=== PATIENT | male | born 1985 | race Caucasian/White ===

== ENCOUNTER 2017-02-10 19:28 | Emergency (ER) | payer BC, OTHER ==
[2017-02-10 19:48] VITALS: BP 124/75; PULSE 68; RESP 18; TEMP 98
--- NOTE | 2017-02-10 20:48 | ED ---
General Adult HPI <Cristian Gee - Last Filed: 02/10/17 21:14> - General Source: patient, RN notes reviewed Mode of arrival: ambulatory Limitations: no limitations <Brando Mathews - Last Filed: 02/10/17 21:24> - General Chief complaint: Extremity Injury, Upper Stated complaint: L shoulder injury Time Seen by Provider: 02/10/17 20:17 - History of Present Illness Initial comments: Patient 31-year-old male who presents emergency room today with chief complaint of an injury to the left shoulder. He does admit that he was at work yesterday picking up a part when he got caught on a pen and pulled his left arm out laterally. He states he felt increased pain to the anterior aspect of left shoulder and began having some numbness sensation down into the arm shortly thereafter. He states proximal less than an hour later he felt like his whole arm was numb. He states it's felt like his arms felt numb the whole day. He states he was at work again tonight and is having a difficult time working because of this feeling. States he does have pain to the anterior aspect left shoulder. He denies any other complaints or symptoms. He denies any neck pain. Patient denies any recent fever, chills, shortness of breath, chest pain, back pain, abdominal pain, nausea or vomiting, dysuria or hematuria, constipation or diarrhea, headaches or visual changes, or any other complaints. (Brando Mathews) - Related Data Previous Rx's Medication Instructions Recorded Ibuprofen [Motrin] 600 mg PO Q6HR PRN #20 day 02/10/17 Allergies Allergy/AdvReac Type Severity Reaction Status Date / Time Penicillins Allergy Unknown Verified 02/10/17 19:47 Review of Systems ROS Other: All systems not noted in ROS Statement are negative. <Cristian Gee - Last Filed: 02/10/17 21:14> ROS Other: All systems not noted in ROS Statement are negative. <Brando Mathews - Last Filed: 02/10/17 21:24> ROS Statement: Those systems with pertinent positive or pertinent negative responses have been documented in the HPI. Past Medical History Past Medical History: Hypertension Additional Past Medical History / Comment(s): knee pain History of Any Multi-Drug Resistant Organisms: None Reported Past Surgical History: Orthopedic Surgery Additional Past Surgical History / Comment(s): right knee surgery twice Past Anesthesia/Blood Transfusion Reactions: No Reported Reaction Past Psychological History: Anxiety Smoking Status: Current every day smoker Past Alcohol Use History: Occasional Past Drug Use History: Marijuana <Brando Mathews - Last Filed: 02/10/17 21:24> General Exam <Cristian Gee - Last Filed: 02/10/17 21:14> Limitations: no limitations <Brando Mathews - Last Filed: 02/10/17 21:24> - General Exam Comments Initial Comments: General: The patient is awake and alert, in no distress, and does not appear acutely ill. Neck: The neck is supple, there is no tenderness or JVD. Cardiovascular: There is a regular rate and rhythm. No murmur, rub or gallop is appreciated. Respiratory: Lungs are clear to auscultation, respirations are non-labored, breath sounds are equal. No wheezes, stridor, rales, or rhonchi. Musculoskeletal: normal appearance of left shoulder obvious deformity. Shows full range motional directions. Normal appearance of cervical, thoracic, lumbar spine. No step-offs forms appreciated. No tenderness over the midline of the spinous processes. Patient has tenderness over the eyes the roof of the anterior aspect of left shoulder along with mild tenderness to the posterior aspect left shoulder. No other bony tenderness on exam. Patient does have decreased sensation to light touch. Decreased sensation to sharp needlepoint. Pulses equal bilaterally 2+. Ram Press Operator strength slightly decreased when compared bilaterally. Strength to the left shoulder and left forearm 5/5. Neurological: A&O x 3. CN II-XII intact, There are no obvious motor or sensory deficits. Coordination appears grossly intact. Speech is normal. Skin: Skin is warm and dry and no rashes or lesions are noted. Psychiatric: Normal mood and affect. (Brando Mathews) Medical Decision Making <Cristian Gee - Last Filed: 02/10/17 21:14> <Brando Mathews - Last Filed: 02/10/17 21:24> - Medical Decision Making Patient reevaluated by myself, Dr. Gee. X-rays reviewed. Patient has some discomfort left anterior shoulder. Patiently may have minimal decreased strength with rim buster. Patient states he had decreased ability to detect sharp sensation. Patient is able to detect pressure without difficulty. No neck pain. No back pain. No tenderness on exam. Case was discussed with Dr. Isidro who agrees symptoms are likely musculoskeletal and will follow up with patient tomorrow. Patient advised not to use his left arm. (Cristian Gee) x-ray negative for any acute abnormality. Results were discussed with the patient. Case discussed with attending physician Dr. Gee who did discuss case with on-call orthopedics Dr. Isidro who states findings are consistent with muscular skeletal him a follow-up in the office tomorrow. Patient's been updated will be discharged home. (Brando Mathews) Disposition <Cristian Gee - Last Filed: 02/10/17 21:14> Time of Disposition: 21:04 <Brando Mathews - Last Filed: 02/10/17 21:24> Clinical Impression: Injury of left shoulder Disposition: HOME SELF-CARE Instructions: Shoulder Pain (ED) Additional Instructions: Please follow-up orthopedics tomorrow as discussed. Please use medication as prescribed and return for any other concerns. Prescriptions: Ibuprofen [Motrin] 600 mg PO Q6HR PRN #20 day PRN Reason: Pain Referrals: None,Stated [Primary Care Provider] - 1-2 days Bola Isidro MD [Medical Doctor] - 1-2 days
--- NOTE | 2017-02-10 20:50 | XR ---
EXAMINATION TYPE: XR shoulder complete LT DATE OF EXAM: 02/10/2017 8:43 PM COMPARISON: NONE HISTORY: Lifting injury TECHNIQUE: 3 views FINDINGS: I see no fracture nor dislocation. Joint spaces are normal. There are no pathologic calcifi cations. IMPRESSION: Negative left shoulder exam.
[2017-02-10] MEDS ORDERED: IBUPROFEN 600 MG STARTER PACK 4 TAB BTL PO STA (21:14)
== END 2017-02-10 21:25 | disposition home or self-care (01) ==
LOC: EC 19:28
DX: S49.92XA Unspecified injury of left shoulder and upper arm, initial encounter (principal); F17.200 Nicotine dependence, unspecified, uncomplicated; Z88.0 Allergy status to penicillin; W31.89XA Contact with other specified machinery, initial encounter; Y93.89 Activity, other specified; Y92.69 Other specified industrial and construction area as the place of occurrence of the external cause
CPT/HCPCS: 99283

== ENCOUNTER 2017-03-30 02:12 | Observation (INO) | payer BC, OTHER ==
[2017-03-30] MEDS ORDERED: MAG HYDROX/AL HYDROX/SIMETH 30 ML, HYOSCYAMINE ELIXIR 10 ML, CIMETIDINE HCL 300 MG PO STA ×3 (02:30)
--- NOTE | 2017-03-30 02:33 | ED ---
Chest Pain HPI - General Source: patient Mode of arrival: ambulatory Limitations: no limitations <Davonte Hollingsworth - Last Filed: 03/30/17 03:44> <Cristian Gee - Last Filed: 03/30/17 04:46> - General Chief Complaint: Chest Pain Stated Complaint: Chest pain Time Seen by Provider: 03/30/17 02:20 - History of Present Illness Initial Comments: 31-year-old male presents emergency Department chief complaint chest pain. Patient states this started 90 minutes prior arrival. Patient states that it's in his left lower chest region. Patient states that it's nonradiating sharp stabbing type pain. Patient has a history of hypertension and a family history of heart disease. Patient states he does not know about any cholesterol issues and denies diabetes. Patient is a daily smoker. Patient states that he has been told that he has had gastric ulcer in the past was on Prilosec for 2 years. Patient didn't admit to eating fast food today. Patient states he has no abdominal pain. Denies any nausea vomiting diarrhea constipation. Denies any shortness of breath but states he does feel very rundown and weak today. ( Davonte Hollingsworth) - Related Data Home Medications Medication Instructions Recorded Confirmed Acetaminophen Tab [Tylenol Tab] 1,000 mg PO Q6HR PRN 03/30/17 03/30/17 Vitamin B Complex 1 each PO DAILY 03/30/17 03/30/17 Allergies Allergy/AdvReac Type Severity Reaction Status Date / Time Penicillins Allergy Unknown Verified 03/30/17 02:17 Review of Systems ROS Other: All systems not noted in ROS Statement are negative. <Davonte Hollingsworth - Last Filed: 03/30/17 03:44> ROS Other: All systems not noted in ROS Statement are negative. <Cristian Gee - Last Filed: 03/30/17 04:46> ROS Statement: Those systems with pertinent positive or pertinent negative responses have been documented in the HPI. EKG Findings - EKG Comments: EKG Findings:: EKG performed at 2:23 6 sinus bradycardia with a rate of 53 RI interval 142 QRS duration 92 QT/QTC 364/341 <Davonte Hollingsworth - Last Filed: 03/30/17 03:44> Past Medical History Past Medical History: GERD/Reflux, Hypertension Additional Past Medical History / Comment(s): knee pain; Gastric Ulcer History of Any Multi-Drug Resistant Organisms: None Reported Past Surgical History: Orthopedic Surgery Additional Past Surgical History / Comment(s): right knee surgery twice Past Anesthesia/Blood Transfusion Reactions: No Reported Reaction Past Psychological History: Anxiety Smoking Status: Current every day smoker Past Alcohol Use History: Occasional Past Drug Use History: None Reported <Davonte Hollingsworth - Last Filed: 03/30/17 03:44> General Exam Limitations: no limitations General appearance: alert, in no apparent distress Respiratory exam: Present: normal lung sounds bilaterally. Absent: respiratory distress, wheezes, rales, rhonchi, stridor, chest wall tenderness Cardiovascular Exam: Present: regular rate, normal rhythm, normal heart sounds. Absent: systolic murmur, diastolic murmur, rubs, gallop, clicks GI/Abdominal exam: Present: soft, tenderness (mild epigastric), normal bowel sounds. Absent: distended, guarding, rebound, rigid Back exam: Absent: CVA tenderness (R), CVA tenderness (L) Skin exam: Present: warm, dry, intact, normal color. Absent: rash <Davonte Hollingsworth - Last Filed: 03/30/17 03:44> Chest Pain MDM <Davonte Hollingsworth - Last Filed: 03/30/17 03:44> <Cristian Gee - Last Filed: 03/30/17 04:46> - MDM Case was discussed with practitioner customer care team coach, who will admit for Dr. Yates, covering for hospital call. (Cristian Gee) Disposition <Davonte Hollingsworth - Last Filed: 03/30/17 03:44> <Cristian Gee - Last Filed: 03/30/17 04:46> Clinical Impression: Chest pain Disposition: ADMITTED IP TO THIS HOSP Condition: Stable
[2017-03-30 02:50] LABS: Basophils # (A) 0.1 k/uL (0-0.2); Basophils % (A) 1 %; CH 31.2; CHCM 34.8; Eosinophils # (A) 0.2 k/uL (0-0.7); Eosinophils % (A) 3 %; HCT 43.7 % (39.0-53.0); HDW 2.41; HGB 14.7 gm/dL (13.0-17.5); Luc # (Auto) 0.18; Luc % (Auto) 3; Lymphocytes # (A) 2.7 k/uL (1.0-4.8); Lymphocytes % (A) 37 %; MCH 30.3 pg (25.0-35.0); MCHC 33.7 g/dL (31.0-37.0); Mean Platelet Volume 8.1; Monocytes # (A) 0.3 k/uL (0-1.0); Monocytes % (A) 4 %; Neutrophils # (A) 3.7 k/uL (1.3-7.7); Neutrophils % (A) 52 %; RBC 4.86 m/uL (4.30-5.90); RDW 12.8 % (11.5-15.5); WBC 7.2 k/uL (3.8-10.6); WBC (Perox) 6.75
[2017-03-30 03:00] LABS: ALT 33 U/L (21-72); AST 18 U/L (17-59); Alkaline Phosphatase 57 U/L (38-126); Anion Gap 10 mmol/L; Blood Urea Nitrogen 17 mg/dL (9-20); Calcium 9.4 mg/dL (8.4-10.2); Carbon Dioxide 26 mmol/L (22-30); Chloride 106 mmol/L (98-107); Glucose 115 mg/dL (74-99); Magnesium 2.1 mg/dL (1.6-2.3); Non-African American GFR(MDRD) >60 (>60 ml/min/1.73 sqM); Potassium 4.2 mmol/L (3.5-5.1); Sodium 142 mmol/L (137-145); Total Bilirubin 0.3 mg/dL (0.2-1.3); Total Protein 6.2 g/dL (6.3-8.2)
[2017-03-30 03:07] LABS: INR 1.1 (<1.1); Partial Thromboplastin Time 25.8 sec (22.0-30.0)
[2017-03-30 03:11] LABS: Creatine Kinase 56 U/L (55-170)
[2017-03-30 03:24] LABS: Creatine Kinase MB 1.3 ng/mL (0.0-2.4); Troponin I <0.012 ng/mL (0.000-0.034)
--- NOTE | 2017-03-30 03:38 | XR ---
EXAM: XR Chest, 2 Views CLINICAL HISTORY: Chest Pain TECHNIQUE: Frontal and lateral views of the chest. COMPARISON: No relevant prior studies available. FINDINGS: Lungs: Unremarkable. No consolidation. Pleural space: Unremarkable. No pneumothorax. Heart: Unremarkable. No cardiomegaly. Mediastinum: Unremarkable. Bones/joints: Unremarkable. IMPRESSION: Normal chest x-rays.
[2017-03-30] MEDS ORDERED: HEPARIN SODIUM,PORCINE 5,000 UNIT/ML 1 ML VIAL IV ONE (03:45)
[2017-03-30] MEDS ORDERED: HEPARIN SODIUM,PORCINE/D5W PMX 25,000 UNIT in DEXTROSE/WATER 1 500ML.BAG IV SCH (03:45)
[2017-03-30] MEDS ORDERED: NITROGLYCERIN SL TABS 0.4 MG TAB SUBLINGUAL PRN (03:45)
[2017-03-30 04:54] VITALS: BMI 25.0
[2017-03-30 05:02] VITALS: RESP 18
[2017-03-30] MEDS ORDERED: ASPIRIN 325 MG TAB PO SCH (09:00)
[2017-03-30 09:15] LABS: Creatine Kinase 41 U/L (55-170)
[2017-03-30 09:28] LABS: Creatine Kinase MB 0.9 ng/mL (0.0-2.4); Troponin I <0.012 ng/mL (0.000-0.034)
[2017-03-30 12:19] VITALS: BP 147/90; PULSE 62; TEMP 98
--- NOTE | 2017-03-30 13:56 | PCN ---
DATE OF SERVICE: 03/30/2017 STRESS ECHOCARDIOGRAM INDICATION: Chest pain. BASELINE HEART RATE: 48 BASELINE BLOOD PRESSURE: 136/85 MAXIMUM HEART RATE: 160 MAXIMUM BLOOD PRESSURE: 173/58 85% MPHR: 159 100% MPHR: 187 METS: 13.0 MAXIMUM STAGE REACHED: 4 TOTAL EXERCISE TIME: 12:00 Baseline EKG shows sinus rhythm, normal axis, normal intervals. Patient exercise on Kody protocol for a total of 12 minutes, achieving 13 METS, 86% of predicted maximum heart rate without chest pain or diagnostic ST-segment depression. Baseline echo shows normal left ventricular size, wall motion and systolic function. Post-exercise, there is normal hyperdynamic response of all segments of myocardium noted. CONCLUSION: 1. Excellent exercise tolerance. 2. Negative stress test by EKG criteria. 3. Negative stress echo. [facility]
--- NOTE | 2017-03-30 18:34 | P.HPIM ---
History of Present Illness H&P Date: 03/30/17 (dc summary) 31-year-old gentleman with history of hypertension who has been noncompliant with his medications comes in to the hospital with complains of chest pressure nonradiating patient's symptoms were noted during his work. Patient's work set automobile parts factory Denies having previous episodes of chest pains. Patient notes that he's had some facial flushing and some headaches during the symptoms patient was not able to measure his blood pressure however in the emergency room patient's blood pressure was noted to be 160 systolic Patient did note resolution of symptoms upon receiving nitroglycerin EKG did not reveal ST-T wave changes Patient underwent a stress test which did not reveal any reproducible ischemia Patient has family history of cardiac disease and ongoing tobacco use Review of Systems All systems: negative (Noted in HPI) Past Medical History Past Medical History: GERD/Reflux, Hypertension Additional Past Medical History / Comment(s): knee pain; Gastric Ulcer History of Any Multi-Drug Resistant Organisms: None Reported Past Surgical History: Orthopedic Surgery Additional Past Surgical History / Comment(s): right knee surgery twice Past Anesthesia/Blood Transfusion Reactions: No Reported Reaction Past Psychological History: Anxiety Smoking Status: Current every day smoker Past Alcohol Use History: Occasional Past Drug Use History: None Reported Medications and Allergies Home Medications Medication Instructions Recorded Confirmed Type Acetaminophen Tab [Tylenol] 1,000 mg PO Q6HR PRN 03/30/17 03/30/17 History Vitamin B Complex 1 cap PO DAILY 03/30/17 03/30/17 History Allergies Allergy/AdvReac Type Severity Reaction Status Date / Time Penicillins Allergy Unknown Verified 03/30/17 08:11 Physical Exam Vitals: Vital Signs Temp Pulse Pulse Resp BP BP Pulse Ox 03/30/17 12:18 98.0 F 62 18 147/90 96 03/30/17 12:00 62 18 03/30/17 08:00 49 L 18 03/30/17 07:53 97.8 F 49 L 18 112/64 98 03/30/17 07:47 98 03/30/17 05:10 44 L 18 03/30/17 05:01 97.9 F 42 L 18 123/79 98 03/30/17 04:14 98.0 F 50 L 20 127/84 100 03/30/17 02:15 97.8 F 85 18 137/93 98 Intake and Output 06/28/17 06/28/17 06/28/17 06:59 14:59 22:59 Intake Total 5 240 Balance 5 240 Intake: Amount of Fluid Infused ( 5 ml) Oral 240 Other: Voiding Method Toilet # Voids 1 Weight 88.451 kg Physical exam Gen. appearance oriented 3 in no distress Neck is supple no JVD Lungs good air entry clear to auscultation no rhonchi or wheezing Heart S1-S2 heard regular rate and rhythm no murmurs appreciated Abdomen is soft nontender no organomegaly bowel sounds are intact Neurologically cranial nerves II-12 grossly intact no focal motor or sensory deficits noted Skin no abnormalities appreciated Results CBC & Chem 7: 03/30/17 02:41 03/30/17 02:41 Labs: Abnormal Lab Results - Last 24 Hours (Table) 03/30/17 03/30/17 Range/Units 02:41 08:16 Glucose 115 H (74-99) mg/dL Total Creatine Kinase 41 L (55-170) U/L Total Protein 6.2 L (6.3-8.2) g/dL Assessment and Plan Plan: #1 atypical chest pain is uses ruled out #2 hypertension slightly uncontrolled #3 ongoing tobacco use plan Smoking cessation is recommended Patient be started on hydrochlorothiazide 12.5 mg is recommended to follow up with primary care physician Discharged home in stable condition
--- NOTE | 2017-04-01 17:58 | ECHOF ---
Referral Reason:chest pain MEASUREMENTS -------- HEIGHT: 188.0 cm WEIGHT: 88.5 kg BP: 136/75 RVIDd: 3.6 cm (< 3.3) IVSd: 1.0 cm (0.6 - 1.1) LVIDd: 5.0 cm (3.9 - 5.3) LVPWd: 1.0 cm (0.6 - 1.1) IVSs: 1.8 cm LVIDs: 3.1 cm LVPWs: 1.9 cm LAESV Index (A-L): 22.30 ml/m Ao Diam: 3.1 cm (2.0 - 3.7) AV Cusp: 2.3 cm (1.5 - 2.6) LA Diam: 3.7 cm (2.7 - 3.8) MV EXCURSION: 13.883 mm (> 18.000) MV EF SLOPE: 139 mm/s (70 - 150) EPSS: 0.9 cm MV E Evans: 0.83 m/s MV DecT: 170 ms MV A Evans: 0.67 m/s MV E/A Ratio: 1.22 FINDINGS -------- Resting bradycardia (HR<60bpm). This was a technically good study. Overall left ventricular systolic function is normal with, an EF between 60 - 65 %. The right ventricle is normal in size and function. Normal LA size by volume 22+/-6 ml/m2. The right atrium is normal in size. The aortic valve is trileaflet, and appears structurally normal. No aortic stenosis or regurgitation. The mitral valve leaflets are mildly thickened. There is trace mitral regurgitation. Trace tricuspid regurgitation present. There is no evidence of pulmonary hypertension. The right ventricular systolic pressure, as measured by Doppler, is {RVSP}. Trace/mild (physiologic) pulmonic regurgitation. The aortic root size is normal. Normal inferior vena cava with normal inspiratory collapse consistent with estimated right atrial pressure of 5 mmHg. The pericardium is normal. There is no pericardial effusion. CONCLUSIONS -------- 1. Resting bradycardia (HR<60bpm). 2. The right ventricular systolic pressure, as measured by Doppler, is {RVSP}. 3. Trace/mild (physiologic) pulmonic regurgitation. 4. The aortic root size is normal. 5. There is no pericardial effusion. 6. This was a technically good study. 7. Overall left ventricular systolic function is normal with, an EF between 60 - 65 %. 8. Normal LA size by volume 22+/-6 ml/m2. 9. The aortic valve is trileaflet, and appears structurally normal. No aortic stenosis or regurgitation. 10. The mitral valve leaflets are mildly thickened. 11. There is trace mitral regurgitation. 12. Trace tricuspid regurgitation present. 13. There is no evidence of pulmonary hypertension. XM1 TANK DRIVER: Jerome Delgado RDCS
--- NOTE | 2017-04-01 19:43 | CONS ---
Mr. Alonso is a 31 year old gentleman who is seen for chest pain. He gives history that he started having chest pain for about 90 minutes prior to coming to the emergency room. The pain was in the left mid precordial area. It was crampy feeling, sharp stabbing kind of pain. The pain would come and go. The pain was not related to exertion. He did not have any nausea or vomiting. The patient has been told in the past that he has possible mild hypertension but he does not take any medications. He does not check his blood pressure at home. The patient denies any history of exertional chest discomfort. He has a prior history of gastric ulcer. His father though has history of a heart problem. Home medications include: 1. Tylenol. 2. Penicillin. REVIEW OF SYSTEM: Otherwise unremarkable. Past medical history: Includes history of gastric ulcer, knee repair and orthopedic surgery. SOCIAL HISTORY: The patient is a current everyday smoker. PHYSICAL EXAMINATION: At present reveals a 31 year old gentleman who does not appear to be in any acute distress. The blood pressure is 112/64 mmHg. Heart rate is 50 per minute. Head/ENT examination is negative. Neck is supple. There is no increase in jugular venous pressure. Both the carotid pulses are felt. There is no bruit. Chest is symmetrical. Heart, the PMI is not felt. First and second heart sounds are normal. There is no evidence of any murmur. Lungs are clinically clear to auscultation and percussion. Abdomen is soft. Liver and spleen are not enlarged. Bowel sounds are heard. Extremities: Peripheral pulsations are 2+. EKG shows normal sinus rhythm without any acute ischemic changes. Cardiac enzymes, two sets of troponins are normal. FINAL IMPRESSION: Atypical chest pain. EKGs and cardiac enzymes are normal. RECOMMENDATIONS: We will evaluate the patient with echocardiogram and stress echocardiographic study. JOANN
== END 2017-03-30 15:55 | disposition home or self-care (01) ==
LOC: EC 02:12 → 3OBS 03:45
PROVIDERS: ADMIT Hospitalist; ATTEND Hospitalist
DX: R07.9 Chest pain, unspecified (principal); I10 Essential (primary) hypertension; F17.200 Nicotine dependence, unspecified, uncomplicated; R53.1 Weakness; F41.9 Anxiety disorder, unspecified; R51 Headache; K21.9 Gastro-esophageal reflux disease without esophagitis; Z82.49 Family history of ischemic heart disease and other diseases of the circulatory system; Z87.11 Personal history of peptic ulcer disease; Z88.0 Allergy status to penicillin; Z91.14 Patient's other noncompliance with medication regimen
CPT/HCPCS: 96374 ×2; 99285 ×2; 36415; 94760; 93005; 93017; 93306; 93350; 80053; 82550; 82553; 83690; 83735; 84484; 85025; 85610; 85730; 71020; G0378; J1644 ×2

== ENCOUNTER 2017-04-11 01:43 | Emergency (ER) | payer OTHER ==
[2017-04-11] MEDS ORDERED: MECLIZINE 25 MG TAB ONE (02:48)
[2017-04-11] MEDS ORDERED: METOCLOPRAMIDE 5 MG/ML 2 ML VIAL ONE (02:48)
[2017-04-11 05:32] LABS: Basophils # (A) 0.1 k/uL (0-0.2); Basophils % (A) 1 %; CH 31.2; CHCM 35.1; Eosinophils # (A) 0.4 k/uL (0-0.7); Eosinophils % (A) 5 %; HCT 39.7 % (39.0-53.0); HDW 2.38; HGB 14.1 gm/dL (13.0-17.5); Luc # (Auto) 0.17; Luc % (Auto) 2; Lymphocytes # (A) 2.9 k/uL (1.0-4.8); Lymphocytes % (A) 35 %; MCH 31.8 pg (25.0-35.0); MCHC 35.6 g/dL (31.0-37.0); MCV 89.4 fL (80.0-100.0); Mean Platelet Volume 7.6; Monocytes # (A) 0.4 k/uL (0-1.0); Monocytes % (A) 5 %; Neutrophils # (A) 4.4 k/uL (1.3-7.7); Neutrophils % (A) 53 %; RBC 4.44 m/uL (4.30-5.90); RDW 12.8 % (11.5-15.5); WBC 8.4 k/uL (3.8-10.6); WBC (Perox) 8.13
[2017-04-11 05:47] LABS: ALT 33 U/L (21-72); AST 20 U/L (17-59); Alkaline Phosphatase 65 U/L (38-126); Anion Gap 9 mmol/L; Blood Urea Nitrogen 16 mg/dL (9-20); Calcium 9.1 mg/dL (8.4-10.2); Carbon Dioxide 24 mmol/L (22-30); Chloride 106 mmol/L (98-107); Glucose 91 mg/dL (74-99); Non-African American GFR(MDRD) >60 (>60 ml/min/1.73 sqM); Sodium 139 mmol/L (137-145); Total Bilirubin 0.4 mg/dL (0.2-1.3)
[2017-04-11 05:54] LABS: Creatine Kinase MB 0.9 ng/mL (0.0-2.4)
[2017-04-11] MEDS ORDERED: SODIUM CHLORIDE 0.9% 500 ML BAG ONE (07:03)
== END 2017-04-11 04:35 | disposition home or self-care (01) ==
LOC: EC 01:43
DX: R42 Dizziness and giddiness (principal); Z88.0 Allergy status to penicillin; Z79.899 Other long term (current) drug therapy
CPT/HCPCS: 99284; 96374; 93005; 36415; 80053; 82550; 82553; 85025; J2765

== ENCOUNTER 2021-02-02 16:30 | Emergency (ER) | payer OTHER ==
[2021-02-02 16:44] VITALS: BP 148/87; PULSE 87; RESP 16; TEMP 97.9
[2021-02-02] MEDS ORDERED: SODIUM CHLORIDE 0.9% 1,000 ML IV STA (17:41)
--- NOTE | 2021-02-02 17:43 | ED ---
Eye Problem HPI - General Chief complaint: Eye Problems Stated complaint: Eye injury Time Seen by Provider: 02/02/21 17:31 Source: patient, RN notes reviewed Mode of arrival: ambulatory Limitations: no limitations - History of Present Illness Initial comments: Patient is a 35-year-old male that presents to emergency department status post getting hydraulic fluid in his right eye. He notes that while at work he was looking into a hole by piece machine when the hose counter broke Spring the right side is facing getting into his right eye. He notes that it feels like he was cutting a polyp Ashley and then rubbed his eye. He notes that his vision is blurry can make out shapes but colored fine details not so much. He notes that he did try flushing a little bit and then use some Visine drops to help. He noted that he didn't really flush it for a couple minutes. He noted that light makes his eye hurt more. He denied any chest pain shortness of breath headache nausea vomiting diarrhea constipation fever fatigue chills. - Related Data Home Medications Medication Instructions Recorded Confirmed Acetaminophen Tab [Tylenol] 1,000 mg PO Q6HR PRN 03/30/17 03/30/17 Vitamin B Complex 1 cap PO DAILY 03/30/17 03/30/17 Previous Rx's Medication Instructions Recorded hydroCHLOROthiazide [Hydrodiuril] 12.5 mg PO DAILY #30 cap 03/30/17 Allergies Allergy/AdvReac Type Severity Reaction Status Date / Time Penicillins Allergy Unknown Verified 02/02/21 16:45 Review of Systems ROS Statement: Those systems with pertinent positive or pertinent negative responses have been documented in the HPI. ROS Other: All systems not noted in ROS Statement are negative. Past Medical History Past Medical History: GERD/Reflux, Hypertension Additional Past Medical History / Comment(s): knee pain; Gastric Ulcer History of Any Multi-Drug Resistant Organisms: None Reported Past Surgical History: Orthopedic Surgery Additional Past Surgical History / Comment(s): right knee surgery twice Past Anesthesia/Blood Transfusion Reactions: No Reported Reaction Past Psychological History: Anxiety Smoking Status: Current every day smoker Past Alcohol Use History: Occasional Past Drug Use History: Marijuana General Exam Limitations: no limitations General appearance: alert, in no apparent distress Head exam: Present: atraumatic, normocephalic, normal inspection Eye exam: Present: normal appearance, PERRL, EOMI. Absent: scleral icterus, conjunctival injection, periorbital swelling Neck exam: Present: normal inspection. Absent: tenderness, meningismus, lymphadenopathy Respiratory exam: Present: normal lung sounds bilaterally. Absent: respiratory distress, wheezes, rales, rhonchi, stridor Cardiovascular Exam: Present: regular rate, normal rhythm, normal heart sounds. Absent: systolic murmur, diastolic murmur, rubs, gallop, clicks Extremities exam: Present: normal inspection, full ROM, normal capillary refill. Absent: tenderness, pedal edema, joint swelling, calf tenderness Neurological exam: Present: alert, oriented X3, CN II-XII intact Psychiatric exam: Present: normal affect, normal mood Skin exam: Present: warm, dry, intact, normal color. Absent: rash Course Vital Signs 02/02/21 16:42 Temperature 97.9 F Pulse Rate 87 Respiratory 16 Rate Blood Pressure 148/87 O2 Sat by Pulse 96 Oximetry Medical Decision Making - Medical Decision Making 35-year-old male with hydraulic fluid in his right eye. Eye irrigation, 1 L normal saline, visual acuity test ordered. Patient declined the need for any pain medication. After flushing patient is able to open his eye but still states that it hurts, light hurting and that he is still having difficulty seeing. Visual acuity: Left eye 20/20, right eye 20/200. Case discussed with Dr. Quiros, patient can discharge home with follow-up to ophthalmology. Dr. Tinoco was consulted and said the patient can get some ointment and eye patch and follow-up in office tomorrow. Disposition Clinical Impression: Foreign body in eye, Decreased vision of right eye Disposition: HOME SELF-CARE Condition: Stable Instructions (If sedation given, give patient instructions): Eye Wash (Into the eye), Eye Foreign Body (ED) Additional Instructions: Please return to the Emergency Department if symptoms worsen or any other concerns. Keep eye patch on until he can follow-up with ophthalmology tomorrow in office. Can take [id number] anti-inflammatories for pain control. Is patient prescribed a controlled substance at d/c from ED?: No Referrals: None,Stated [Primary Care Provider] - 1-2 days Adis Tinoco MD [STAFF PHYSICIAN] - 1-2 days Time of Disposition: 19:07
[2021-02-02] MEDS ORDERED: ERYTHROMYCIN 5 MG/GM OPHTH OINT 3.5 GM TUBE RIGHT EYE STA (19:00)
== END 2021-02-02 19:27 | disposition home or self-care (01) ==
LOC: EC 16:30
DX: T15.91XA Foreign body on external eye, part unspecified, right eye, initial encounter (principal); H54.7 Unspecified visual loss; I10 Essential (primary) hypertension; K21.9 Gastro-esophageal reflux disease without esophagitis; F17.200 Nicotine dependence, unspecified, uncomplicated; Z88.0 Allergy status to penicillin
CPT/HCPCS: 99282